=== PATIENT | female | born 1945 | race Caucasian/White ===

== ENCOUNTER 2023-10-01 14:33 | Emergency (ER) | payer MEDICARE, OTHER | END 2023-10-01 15:20 | disposition home or self-care (01) | LOC: NAV ERS 14:33 | DX: U07.1 COVID-19 (principal); I10 Essential (primary) hypertension; E03.9 Hypothyroidism, unspecified; Z79.899 Other long term (current) drug therapy | CPT/HCPCS: 99283 ==